=== PATIENT | female | born 1990 | race Caucasian/White ===

== ENCOUNTER 2021-11-24 20:05 | Emergency (ER) | payer BC ==
[2021-11-24 21:10] LABS: HEMOGLOBIN 14.9 gm/dl (12.3-15.3); RED BLOOD COUNT 4.77 M/UL (4.00-5.10); WHITE BLOOD COUNT 10.3 K/UL (4.5-11.0)
[2021-11-24 21:40] LABS: BUN/CREATININE RATIO 12 (0-10)
[2021-11-24] MEDS ORDERED: BENTYL 20MG TAB20 MG PO ×2 (22:49→22:51)
== END 2021-11-24 23:06 | disposition home or self-care (01) ==
LOC: ER1 20:05
PROVIDERS: Student in an Organized Health Care Education/Training Program
DX: R10.9 Unspecified abdominal pain (principal); R11.0 Nausea; R10.819 Abdominal tenderness, unspecified site; M54.50 Low back pain, unspecified; Z88.2 Allergy status to sulfonamides
CPT/HCPCS: 80053; 81001; 83690; 84703; 85025; 96374; 96375; 99284; J2270; J2405; Q9967